=== PATIENT | male | born 2000 | race Caucasian/White ===

== ENCOUNTER 2025-04-14 00:45 | Emergency (ER) | payer SELFPAY ==
[2025-04-14 01:14] VITALS: BP 116/61; PULSE 90; RESP 24; TEMP 36.8; O2SAT 100
[2025-04-14 01:25] VITALS: O2SAT 100
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
[2025-04-14 05:16] VITALS: BP 119/64; PULSE 87; RESP 21; TEMP 36.8; O2SAT 100
[2025-04-14 05:17] VITALS: O2SAT 99
[2025-04-14 05:19] VITALS: BP 119/64; PULSE 87; RESP 21; TEMP 36.8; O2SAT 100
== END 2025-04-14 05:22 | disposition home or self-care (01) ==
LOC: ANHED 04:30
PROVIDERS: Emergency Provider Student in an Organized Health Care Education/Training Program
DX: T59.811A Toxic effect of smoke, accidental (unintentional), initial encounter (principal)
CPT/HCPCS: 99283